=== PATIENT | female | born 1995 | race African-American/Black ===

== ENCOUNTER 2019-02-14 14:00 | Outpatient (CLI) | payer OTHER ==
[~2019-02-14] VITALS: Ht 162.6 cm; Wt 88.2 kg
[2019-02-14] MEDS ORDERED: PRENTAB9 PO (14:14)
[2019-02-14 14:27] VITALS: BP 116/68
--- NOTE | 2019-02-14 21:28 | HPE ---
DATE OF ADMISSION: 02/14/2019 23-year-old 2, para 1, LMP 05/07/2018, EDC 03/10/2019 at 36 and 5 with a history of behind the head, left side headache radiating up over the ear and to the front where her eye is and her eye feels different. She has no discharge from the ear. She has no visual disturbances. She took a couple of Tylenol which seemed to help. When the Tylenol wore off, then the pain came back. She was sleeping at the time on that side and when she woke up is when she had the pain. PAST HISTORY: Trisomy 18, February 2018, baby 7 days after delivery. Labs are A+, HIV negative, hepatitis negative, RPR negative, rubella immune. Varicella immune. Pap shows ASCUS, HPV negative. Gonorrhea and chlamydia negative. 1-hour glucose was 85. Blood pressure is 116/68, respirations are 18, pulse 87, temperature 98.6. Urine is 1.010, pH 6, trace protein, trace nitrites. On examination, no distress. No visual disturbances. Symphysis fundus height is 37. Category one strip. Four quadrant bowel sounds are noted. Evaluation of the left ear, it seems to be normal in architecture, no increased heat. No redness or soreness around the ear. No redness or soreness in the back of the neck or over the ear and into the forehead. Examination of the ear with otoscope, there is moderate amount of cerumen packed in close to the eardrum and quite dark and does not appear to dislodge easily. No evidence of inflammation or irritation, strictly cerumen. On palpating the lymph nodes in the sternocleidomastoid border, no evidence of lymphadenopathy. Otherwise unremarkable. Our plan is for her to get some ear wax softener, apply cotton after the drops are in and attempt to try and evacuate the softened wax, definitely not using a Q-tip as this will only push it in further. The patient expressed understanding. Again, category one strip. No contractions. The patient has an appointment with Maurice GAUTAM in 48 hours. Urged to keep that appointment and the patient was discharged undelivered.
== END 2019-02-14 15:06 | disposition home or self-care (01) ==
LOC: M LDO 14:00
PROVIDERS: ATTEND Obstetrics & Gynecology
DX: O99.89 Other specified diseases and conditions complicating pregnancy, childbirth and the puerperium (principal); R51 Headache; Z3A.36 36 weeks gestation of pregnancy
CPT/HCPCS: 59025; G0378; G0463

== ENCOUNTER 2019-03-11 16:18 | Inpatient (IN) | payer OTHER ==
[2019-03-11] VITALS (19 sets, daily range): BP systolic 113–144; BP diastolic 65–87
[~2019-03-11] VITALS: Ht 162.6 cm; Wt 79.7 kg
[~2019-03-11 16:18] MED LIST: PRENTAB9 PO
[2019-03-11] MEDS ORDERED: LACTATED RINGER'S 1000 ML IV STA (17:13)
--- NOTE | 2019-03-11 17:30 | HPEPDOC ---
Obstetrical History & Physical General Date of Admission Mar 11, 2019 at 17:07 History of Present Illness 24 yo (child 5 days after due to trisomy 18) at 40+1 weeks ges tation by 8+6 week US on [id number] presents to L&D with the complaint of regular, painful contractions that have been worsening throughout the day. She denies any vaginal bleeding or leakage of fluid. She endorses excellent movement. Chief Complaint: Contractions, term Information Provided By: Patient Age: 24 : 2 Term: 1 Pre-term: 0 Abortions: 0 Livin Care Care: Good Care Dating Final EDC: Mar 10, 2019 Final EDC for Daily Update: Mar 10, 2019 Final EDC by: 1st trimester (US) (8+6 week US on [id number] set PAMELA of [id number]) 1st Trimester Date: August 04, 2018 (8+6 week US on [id number] set PAMELA of [id number]) Antepartum Course Diagnos(e)s Trisomy 18 in last child. 5 days after at 39 weeks. Current with low risk cff DNA genetic screening. 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 ABDOMEN: Gravid and non-tender to touch. FETUS: Is vertex (VTX) by sterile vaginal examination (SVE) EXTREMITIES: No edema. Vital Signs/I&O Vital Signs Date Time Temp Pulse Resp B/P (MAP) Pulse Ox O2 Delivery O2 Flow Rate FiO2 12/20/19 16:36 97.7 81 16 115/70 (85) Laboratory Data Urine Culture: No Growth Pertinent Laboratoy Data Blood Type: A+ RBC Antibody Screen: Negative HIV: Negative Hepatitis B: Negative Hepatitis C: Unknown Rapid Plasma Reagin: Nonreactive Rubella: Immune Varicella: Immune Chlamydia/Gonorrhea: Negative Group B Streptococcus: Negative Quad Screen Test: Unknown (Had low risk cff DNA genetic screening) Cystic Fibrosis: Unknown Glucose Tolerance Test: 85 Anatomy Ultrasound Placenta Location: Posterior Normal Anatomy: Yes Placenta Previa: No Vaginal Examination Dilation: 4 cm Effacement: 80% Station: -2 Cervical Consistency: Soft Cervical Position: Middle Presentation: Cephalic presentation Position: Vertex (occiput) Assessment Heart Rate (FHR): 135 Variability: Moderate Accelerations: Positive Decelerations: None Tocometer Contractions: Yes Frequency: regular Duration: greater than 60 seconds Strength: palpated as moderate Assessment/Plan Assessment 24 yo at 40+1 weeks presented to L&D in early labor. Plan Admit to L&D for expectant management of labor. Will augment as clinically indicated. Apply IV fluids. Clear liquid diet. GBS negative. Patient a candidate for epidural if desired. Anticipate . Taras Thomas, DO Labor and Delivery Counseling Vaginal / Operative vaginal delivery counseling Deliver your baby through the vagina with possible assistance of forceps or vacuum device if needed for maternal or indications. Forceps and vacuum are devices that can assist with vaginal delivery when normal pushing efforts cannot achieve delivery on their own or when delivery is needed in an emergency for baby's well-being. Medications may be required to induce or augment (help) your labor in order to achieve a vaginal delivery. An episiotomy may be required to help your baby to delivery vaginally. You may also require repair of any lacerations or tears of your vagina or vulva that are caused by delivery. In some cases, emergencies can occur that require an emergency section delivery so quickly that there may not be enough time to stop and complete consent forms for section. Understand that if this occurs, your providers will discuss the need for a section with you before they proceed with surgery. section is the delivery of your baby through an incision in your abdomen. In some situations, section may be safer to mom and baby than continuing labor and is only performed when clinically indicated. Risks of vaginal delivery include but are not limited to: Bleeding, infection, injury to the vagina, pelvic structures, injury to baby, damage to the uterus, reactions to anesthesia, uterine rupture, risk of hysterectomy for life threatening bleeding, or . Medications used to induce or augment labor may increase your risk for infection, uterine tachysystole, uterine rupture, heart rate abnormalities, need for emergency delivery or possible hysterectomy, and hemorrhage. Additional risks for use of forceps and vacuum include: increased risk of perineal and vaginal lacerations, risk of urinary or bowel incontinence, increased risk of injury to baby with bruising, scratches, hematomas on the head, or intracranial bleeding. Leighann Sophia verbalized understanding of these risks and appears to understand. TARAS THOMAS DO Mar 11, 2019 17:30
[2019-03-11 17:59] LABS: HEMATOCRIT 37.2 % (36.0-47.0); MEAN CORPUSCULAR HEMOGLOBIN 20.7 pg (27.0-33.0); MEAN CORPUSCULAR HGB CONC 29.6 g/dl (32.0-36.5); MEAN CORPUSCULAR VOLUME 69.9 fl (80.0-96.0); PLATELET COUNT, AUTOMATED 156 10^3/uL (150-450); RED BLOOD COUNT 5.32 10^6/uL (4.00-5.40); WHITE BLOOD COUNT 9.9 10^3/uL (4.0-10.0)
[2019-03-11] MEDS ORDERED: FENTANYL 2MCG/ML ROPIVACAINE 0.2% IN 0.9% NACL 100ML IVBAG As Ordered ONE (18:54)
[2019-03-11] MEDS ORDERED: OXYTOCIN 30 UNITS IN 0.9% NaCl 500ML IV BAG (J2590) As Ordered ONE (20:22)
[2019-03-11] MEDS ORDERED: ePHEDrine SULFATE 25 MG/5 ML(5MG/ML) SYRINGE IV PRN (20:30)
[2019-03-11] MEDS ORDERED: NALOXONE INJ 0.4 MG/1 ML VIAL (J2310) IV PRN (20:30)
[2019-03-11] MEDS ORDERED: diphenhydrAMINE INJ 50MG/ML VIAL (J1200) IV PRN (20:30)
[2019-03-11] MEDS ORDERED: FENTANYL/ROPIVACAINE/NACL BAG 100 ML EPIDURAL SCH (20:30)
[2019-03-11] MEDS ORDERED: LACTATED RINGER'S 1000 ML IV PRN (20:30)
[2019-03-11] MEDS ORDERED: EPIDURAL COMMENT XX SCH (20:30)
[2019-03-11] MEDS ORDERED: EPIDURAL/PCA KEYS XX PRN (20:30)
[2019-03-11] MEDS ORDERED: REFRIGERATOR IV KEYS XX PRN (20:30)
[2019-03-11] MEDS ORDERED: ONDANSETRON 4MG/2ML VIAL (J2405) IV PRN (20:30)
[2019-03-11] MEDS ORDERED: OXYTOCIN DRIP 30 UNITS in IV 1 EA IV SCH (21:32)
--- NOTE | 2019-03-11 21:41 | DNPDOC ---
[facility] Delivery Note Delivery Note DATE OF DELIVERY: [id number] at ~2130 PREDELIVERY DIAGNOSIS: 40+1 weeks gestation and active labor POST DELIVERY DIAGNOSIS: Delivered. PROCEDURE: Spontaneous vaginal delivery SECOND OFFICER: Dr. Thomas ANESTHESIA: Epidural ESTIMATED BLOOD LOSS: 200 mL. FINDINGS: Viable female infant, 7lbs 0oz (3180 grams), direct OP position, Apgars 9/9 DELIVERY SUMMARY: Nessa progressed quickly on her own power to C/C/+1 and underwent SROM, clear fluid. She barely had time for an epidural but she did receive one and she did get comfortable. She still had an urge to push. The bed was broken down and she was prepped for delivery. She began pushing and with excellent effort her infant delivered. presentation was direct OP and restituted to ROT with delivery. The left anterior shoulder delivered with gentle traction followed easily by the remainder of the body. The infant was dried and stimulated on the field and a bulb suction was used. The was then placed on the maternal abdomen and cried vigorously. The three vessel cord was then clamped and cut by the FOB after appropriate time delay and under my direction. Third stage was then completed with gentle traction on the cord and it was productive of an intact placenta. The uterine fundus was firmed with massage and pitocin was administered via IV bolus. Inspection of the vagina, perineum, labia, and cervix revealed a small first degree laceration. This was repaired in the usual fashion with 3-0 vicryl suture. There was excellent cosmesis and hemostasis after the repair. The fundus was palpated again and was firm. Sponge, instrument, and needle counts were correct X2. Mother and infant stable when I left the room. DO ROSA Linder CHRISTOPHER J. DO Mar 11, 2019 21:41
[2019-03-11] MEDS ORDERED: IBUPROFEN 600 MG TAB PO PRN (21:45)
[2019-03-11] MEDS ORDERED: RHOGAM 300 MCG (1500 IU) INJ (J2790) IM SCH (21:45)
[2019-03-11] MEDS ORDERED: PROMETHAZINE 25 MG TAB PO PRN (21:45)
[2019-03-11] MEDS ORDERED: DIBUCAINE 1% OINTMENT 30GM TOP PRN (21:45)
[2019-03-11] MEDS ORDERED: ACETAMINOPHEN TAB 650MG DOSE (2X325MG) PO PRN (21:45)
[2019-03-11] MEDS ORDERED: ACETAMINOPHEN 500 MG TAB PO PRN (21:45)
[2019-03-11] MEDS ORDERED: MEASLES,MUMPS,RUBELLA VACCINE INJ (MMR-II) (90707) SC SCH (21:45)
[2019-03-11] MEDS ORDERED: DOCUSATE SODIUM 100 MG CAP PO PRN (21:45)
[2019-03-11] MEDS ORDERED: IBUPROFEN 800 MG TAB PO PRN (21:45)
[2019-03-12 06:00] VITALS: BP 112/67
--- NOTE | 2019-03-12 08:01 | IPNPDOC ---
Progress Note Date of Service: Mar 12, 2019 Progress Note Nessa is a 24 yo s/p uncomplicated last night at ~2130 who is currently recovering on the rodriguez. No acute events overnight. Ms. Cortes reports feeling well this morning. She is ambulating, voiding, tolerating a regular diet, and has minimal lochia. Vitals - VSS, afebrile, normotensive, non tachycardic General - AAXO3, laying in bed, NAD Abdomen - Fundus firm at U-1. No fundal tenderness Extremities - No edema Nessa is doing well and is making an appropriate recovery. Continue routine care. Discharge home likely tomorrow AM. Anamika Thomas DO VS, I&O, 24H, Fishbone Vital Signs/I&O Vital Signs Date Time Temp Pulse Resp B/P (MAP) Pulse Ox O2 Delivery O2 Flow Rate FiO2 03/12/19 06:00 98.8 89 18 112/67 (82) 100 Room Air I&O- Last 24 Hours up to 6 AM 03/12/19 05:59 Intake Total 720 ml Output Total 800 ml Balance -80 ml Laboratory Data 24H LABS Laboratory Tests 2 03/11/19 17:20: Serology Scanned Report Hepatitis B Testing 03/11/19 17:51: Nucleated Red Blood Cells % (auto) 0.0, Syphilis Serology NONREACTIVE CBC/BMP Laboratory Tests 03/11/19 17:51 ANAMIKA THOMAS DO Mar 12, 2019 08:01
[2019-03-12] MEDS: PRENATAL VITAMINS CHEWABLE TABLET PO SCH (09:43)
[2019-03-12 18:00] VITALS: BP 123/75
[2019-03-13 05:42] VITALS: BP 132/86
[2019-03-13] MEDS ORDERED: ACET1TAB55 PO (06:10)
[2019-03-13] MEDS ORDERED: PRENCHW PO (06:10)
[2019-03-13] MEDS ORDERED: IBUP-1022 PO (06:10)
[2019-03-13] MEDS: PRENATAL VITAMINS CHEWABLE TABLET PO SCH (09:00)
== END 2019-03-13 12:30 | disposition home or self-care (01) | DRG 807 ==
LOC: M LDO 16:18 → M LDI 17:07 → M OBS 23:34
PROVIDERS: ADMIT Obstetrics & Gynecology; ATTEND Obstetrics & Gynecology
PROC: 10E0XZZ Delivery of Products of Conception, External Approach (ICD-10-PCS; principal; 2019-03-11)
PROC: 0HQ9XZZ Repair Perineum Skin, External Approach (ICD-10-PCS; 2019-03-11)
DX: O48.0 Post-term pregnancy (principal); Z37.0 Single live birth; Z3A.40 40 weeks gestation of pregnancy; O70.0 First degree perineal laceration during delivery